=== PATIENT | male | born 1945 | race Hispanic/Latino ===

== ENCOUNTER 2016-08-27 16:09 | Emergency (ER) | payer MEDICARE ==
[2016-08-27] MEDS ORDERED: LIDOCAINE/EPI 2% 1:200,000 10 ML VIAL ONE (16:54)
--- NOTE | 2016-08-27 19:15 | ER NURSING DOCUMENTATION ---
Nurse's Notes [facility] Name:Jonathan Tay Age:70 yrs Sex:Male :1945 Arrival Date:08/27/2016 Time:16:09 BedD-1 Private MD: Diagnosis:Facial Laceration Presentation: 08/27 16:23 Presenting complaint: Patient states: tripped and fell while hiking. Hit forehead and lpr left side of nose. No LOC. No neck or back pain. Transition of care: patient was not received from another setting of care. Mechanism of Injury: resulted from a fall. 16:23 Method Of Arrival: Walk In lpr 16:23 Acuity: MAVIS 3 lpr Triage Assessment: 16:26 General: Appears in no apparent distress, Behavior is appropriate for age. Pain: lpr Complains of pain in forehead. EENT: Oral mucosa is moist. Neuro: Level of Consciousness is awake, alert, obeys commands, Oriented to person, place, time, event. Cardiovascular: No deficits noted. Respiratory: Airway is patent Respiratory effort is even, unlabored, Respiratory pattern is regular, symmetrical. GI: No deficits noted. : No deficits noted. Derm: Skin is pink, warm & dry. Musculoskeletal: Circulation, motion, and sensation intact Capillary refill < 3 seconds. Injury Description: Abrasion sustained to left cheek near nose Laceration sustained to forehead above left eyebrow. Historical: - Allergies: unknown bp med; - Home Meds: 1. pravastatin oral 2. Aspirin Oral 3. Atenolol Oral - PMHx: HIGH CHOLESTEROL; CAD; HYPERTENSION; - PSHx: CABG; kidney stones; - Tetanus: < 10 years. - Ebola Screening: : No symptoms or risks identified at this time. . - Immunization history: Flu Vaccine >1 year. - Social history: Smoking status: Patient states was never smoker of tobacco. Screenin:30 Infectious Disease Risk None. Abuse screen: Denies threats or abuse. Nutritional lpr screening: No deficits noted. Assessment: 16:29 See Triage Assessment done by same RN. Neuro: Level of Consciousness is awake, alert, lpr obeys commands, Oriented to person, place, time, event. Vital Signs: 16:28 BP 138 / 80; Pulse 76; Resp 16; Temp 97.6; Pulse Ox 89% on R/A; Weight 74.84 kg (R); lpr Height 5 ft. 7 in. (170.18 cm); Pain 3/10; 19:13 Pain 0/10; lc 16:28 Body Mass Index 25.84 (74.84 kg, 170.18 cm) lpr [place] Coma Score: 16:23 Eye Response: spontaneous(4). Verbal Response: oriented(5). Motor Response: obeys lpr commands(6). Total: 15. 17:00 Eye Response: spontaneous(4). Verbal Response: oriented(5). Motor Response: obeys tl1 commands(6). Total: 15. Trauma Score (Adult): 16:29 Eye Response: spontaneous(1); Verbal Response: oriented(1); Motor Response: obeys lpr commands(2); Systolic BP: > 89 mm Hg(4); Respiratory Rate: 10 to 29 per min(4); Kandy Score: 15; Trauma Score: 12 ED Course: 16:13 Patient arrived in ED. dp 16:21 Jose Dunbar MD is Attending Physician. tl1 16:25 Triage completed. lpr 16:29 Notified ED Physician of patient's arrival and chief complaint. Dr. Dunbar notified. lpr 16:30 Valuables Remains with patient Patient has correct armband on for positive lpr identification. 16:55 Wound care to laceration located on forehead was cleaned with soap and water, lpr Irrigation Normal Saline Patient tolerated well. 19:12 Wound care was cleaned with dressed with bacitracin. lc Administered Medications: 16:48 Drug: Lidocaine-Epinephrine -2 % (1:100,000) 10 ml; {Note: by Dr. Dunbar.} Route: lpr Infiltration; Outcome: 18:10 Discharge ordered by . tl1 19:13 Discharged to home ambulatory, with family. 19:13 Condition: stable 19:13 Discharge Assessment: Patient awake, alert and oriented x 3. No cognitive and/or functional deficits noted. Patient verbalized understanding of disposition instructions. 19:13 Discharge instructions given to patient, Instructed on discharge instructions, follow up and referral plans. wound care, Demonstrated understanding of instructions. 19:14 Patient left the ED. lc Signatures: Mai Bess RN RN lc Roberts, Leslie, RN RN lpr Leigh, Tom, MD MD tl1 Watkins, Erika dp
--- NOTE | 2016-08-27 19:15 | ER PHYSICIAN DOCUMENTATION ---
Physician Documentation [facility] Name:Jonathan Tay Age:70 yrs Sex:Male :1945 Arrival Date:08/27/2016 Time:16:09 BedD-1 Private MD: Jose Du Disposition: 08/29 07:07 Chart complete. tl1 Disposition: 08/27/16 18:10 Discharged to Home/Self Care. Impression: Facial Laceration. - Condition is Good. - Discharge Instructions: LACERATION, Face (suture or tape). - Medical Reconciliation form form. - Follow up: Private Physician; When: 4- 6 days; Reason: Staple/Suture removal. - Problem is new. - Symptoms have improved. HPI: 08/27 16:23 This 70 yrs old Male presents to ER with complaints of Head Injury-Adult - tl1 LEFT. 17:00 Context of injury: The problem was sustained outdoors, resulted from a fall, while tl1 walking. Onset: The symptom(s)/episode began/occurred suddenly, just prior to arrival. Associated signs and symptoms: Loss of consciousness: This patient did not experience any loss of consciousness. Pertinent negatives: headache, nausea, neck pain, vomiting, weakness in extremities. Severity of symptoms: At their worst the symptoms were very mild, in the emergency department the symptoms are unchanged. Intracranial bleed risk factors: age over 60. Historical: - Allergies: unknown bp med; - Home Meds: 1. pravastatin oral 2. Aspirin Oral 3. Atenolol Oral - PMHx: HIGH CHOLESTEROL; CAD; HYPERTENSION; - PSHx: CABG; kidney stones; - Tetanus: < 10 years. - Ebola Screening: : No symptoms or risks identified at this time. . - Immunization history: Flu Vaccine >1 year. - Social history: Smoking status: Patient states was never smoker of tobacco. ROS: 17:00 Eyes: Negative for injury or acute deformity, blurry vision, pain, photophobia, visual tl1 disturbance. 17:00 ENT: Negative for injury or acute deformity. 17:00 All other systems are negative. Exam: 17:00 Constitutional: This is a well developed, well nourished patient who is awake, alert, tl1 and in no acute distress. 17:00 Head/face: Exam is negative for raccoon eyes, Noted is a laceration(s), that is deep, that is jagged, 3 cm(s), of the middle aspect of left eyebrow. 17:00 Eyes: Exam is negative for acute changes, Pupils: equal, round, and reactive to light and accomodation. 17:00 ENT: External ear(s): are unremarkable, Nose: is normal. 17:00 Neck: External neck: is normal, C-spine: Nexus Criteria: Nexus criteria: no cervical midline tenderness, patient is not intoxicated, mental status is normal, no focal/neurologic deficits, and no painful distracting injuries are present, vertebral tenderness, is not appreciated, ROM/movement: is normal, is supple, without pain. 17:00 Chest/axilla: Palpation: tenderness, is not appreciated. 17:00 Cardiovascular: Rate: normal. 17:00 Respiratory: Respirations: normal. 17:00 Abdomen/GI: Palpation: abdomen is soft and non-tender. 17:00 Musculoskeletal/extremity: Exam is negative for acute changes. 17:00 Neuro: Orientation: is normal, Mentation: is normal, Memory: is normal, Cranial nerves: grossly normal, Motor: moves all fours, Gait: is steady, at a normal pace, without difficulty, appropriate for age. Vital Signs: 16:28 BP 138 / 80; Pulse 76; Resp 16; Temp 97.6; Pulse Ox 89% on R/A; Weight 74.84 kg (R); lpr Height 5 ft. 7 in. (170.18 cm); Pain 3/10; 19:13 Pain 0/10; lc 16:28 Body Mass Index 25.84 (74.84 kg, 170.18 cm) lpr [place] Coma Score: 16:23 Eye Response: spontaneous(4). Verbal Response: oriented(5). Motor Response: obeys lpr commands(6). Total: 15. 17:00 Eye Response: spontaneous(4). Verbal Response: oriented(5). Motor Response: obeys tl1 commands(6). Total: 15. Trauma Score (Adult): 16:29 Eye Response: spontaneous(1); Verbal Response: oriented(1); Motor Response: obeys lpr commands(2); Systolic BP: > 89 mm Hg(4); Respiratory Rate: 10 to 29 per min(4); Kandy Score: 15; Trauma Score: 12 Laceration: 17:00 Wound Repair of 3cm ( 1.2in ) subcutaneous laceration to middle aspect of left eyebrow. tl1 Irregularly shaped.. Hemostasis noted.. Distal neuro/vascular/tendon intact. Anesthesia: Wound infiltrated with 2.5 mls of 0.5% marcaine. Wound prep: Extensive cleansing by nurse, Wound explored, Copious irrigation. Skin closed with 5-0 Ethilon using Interrupted sutures. Skin closed with 5 1-0 Ethilon using sterile technique. Dressed with Bacitracin, Open to air. Patient tolerated well. MDM: 16:21 Patient medically screened. tl1 17:00 Data reviewed: vital signs, nurses notes, and as a result, I will discharge patient. tl1 Counseling: I had a detailed discussion with the patient and/or guardian regarding: the historical points, exam findings, and any diagnostic results supporting the discharge/admit diagnosis, the need for outpatient follow up, to return to the emergency department if symptoms worsen or persist or if there are any questions or concerns that arise at home. Response to treatment: the patient's symptoms have markedly improved after treatment, and as a result, I will discharge patient. Dispensed Medications: 16:48 Drug: Lidocaine-Epinephrine -2 % (1:100,000) 10 ml; {Note: by Dr. Dunbar.} Route: lpr Infiltration; Signatures: Mai Bess RN RN Lisette Barreto RN RN lpr Leigh, Tom, MD MD tl1
== END 2016-08-27 19:15 | disposition home or self-care (01) ==
LOC: ER 16:09
DX: S01.112A Laceration without foreign body of left eyelid and periocular area, initial encounter (principal); S00.81XA Abrasion of other part of head, initial encounter; W01.0XXA Fall on same level from slipping, tripping and stumbling without subsequent striking against object, initial encounter; Y92.838 Other recreation area as the place of occurrence of the external cause; Y93.01 Activity, walking, marching and hiking; I25.10 Atherosclerotic heart disease of native coronary artery without angina pectoris; Z79.899 Other long term (current) drug therapy; Z95.1 Presence of aortocoronary bypass graft; Z79.82 Long term (current) use of aspirin
CPT/HCPCS: 12052; 99283

== ENCOUNTER 2016-09-02 11:04 | Emergency (ER) | payer MEDICARE ==
--- NOTE | 2016-09-02 11:19 | ER PHYSICIAN DOCUMENTATION ---
Physician Documentation Name:Jonathan Tay Age:70 yrs Sex:Male :1945 Arrival Date:09/02/2016 Time:11:04 [facility] MD: Jose Du Disposition: 09/02 16:16 Chart complete. tl1 Disposition: 09/02/16 11:18 Discharged to Home/Self Care. Impression: Suture Removal. - Condition is Good. - Medical Reconciliation form form. - Follow up: Jose Dunbar MD; When: As needed; Reason: Worsening of condition. - Problem is new. - Symptoms are resolved. HPI: 11:13 This 70 yrs old Male presents to ER via Private Vehicle with complaints of tl1 suture removal. 16:16 I sutured his left supraorbital laceration last week. He came for suture removal, and tl1 was sent home by the nurse, Martha after the sutures were removed. I did not see him this visit. Historical: - Allergies: unknown bp med; - Home Meds: 1. pravastatin oral 2. Aspirin Oral 3. Atenolol Oral - PMHx: HIGH CHOLESTEROL; CAD; HYPERTENSION; Facial Laceration (August 27, 2016); - PSHx: CABG; kidney stones; - Tetanus: < 10 years. - Ebola Screening: : Patient negative for fever greater than or equal to 101.5 degrees Fahrenheit, and additional compatible Ebola Virus Disease symptoms. - Immunization history: Flu Vaccine unknown. - Social history: Smoking status: unknown if patient ever smoked tobacco. Vital Signs: 11:14 BP 136 / 80; Pulse 70; Resp 16; Temp 97.7(TE); Pulse Ox 91% on R/A; lp MDM: 11:13 Patient medically screened. tl1 Dispensed Medications: No medications were administered Signatures: Martha Pedroza RN RN lp Leigh, Tom, MD MD tl1 Debbie Campos
--- NOTE | 2016-09-02 11:19 | ER NURSING DOCUMENTATION ---
Nurse's Notes [facility] [place] Name:Jonathan Tay Age:70 yrs Sex:Male :1945 Arrival Date:09/02/2016 Time:11:04 BedTriage Private MD: Diagnosis:Suture Removal Presentation: 09/02 11:06 Presenting complaint: Patient states: suture removal. Transition of care: Home. rh 11:06 Acuity: MAVIS 5 rh 11:06 Method Of Arrival: Private Vehicle Triage Assessment: 11:07 General: Appears in no apparent distress, Behavior is cooperative. Pain: Denies pain. rh Historical: - Allergies: unknown bp med; - Home Meds: 1. pravastatin oral 2. Aspirin Oral 3. Atenolol Oral - PMHx: HIGH CHOLESTEROL; CAD; HYPERTENSION; Facial Laceration (August 27, 2016); - PSHx: CABG; kidney stones; - Tetanus: < 10 years. - Ebola Screening: : Patient negative for fever greater than or equal to 101.5 degrees Fahrenheit, and additional compatible Ebola Virus Disease symptoms. - Immunization history: Flu Vaccine unknown. - Social history: Smoking status: unknown if patient ever smoked tobacco. Screenin:17 Infectious Disease Risk None. Abuse screen: Denies threats or abuse. Denies injuries lp from another. Nutritional screening: No deficits noted. Assessment: 11:15 Derm: L above eye laceration well healed with scabbing noted. lp Vital Signs: 11:14 BP 136 / 80; Pulse 70; Resp 16; Temp 97.7(TE); Pulse Ox 91% on R/A; lp ED Course: 11:05 Patient arrived in ED. dp 11:06 Triage completed. rh 11:13 Jose Dunbar MD is Attending Physician. tl1 11:14 Martha Pedroza, BURTON is Primary Nurse. lp 11:[address] Dunbar notified. lp 11:17 Removed sutures from left eye Suture site is well healed Patient tolerated well. lp 11:18 Jose Dunbar MD is Referral Physician. lp 11:18 Valuables Remains with patient. lp Administered Medications: No medications were administered Outcome: 11:17 Discharged to home lp 11:17 Condition: good 11:17 Instructed on discharge instructions, follow up and referral plans. 11:17 No charge visit due to suture removal. 11:18 Discharge ordered by . millicent 11:19 Patient left the ED. lp Signatures: Martha Pedroza RN RN lp Leigh, Tom, MD MD tl1 Debbie Campos Denise dp
== END 2016-09-02 11:19 | disposition home or self-care (01) ==
LOC: ER 11:04
DX: Z48.02 Encounter for removal of sutures (principal); S01.112D Laceration without foreign body of left eyelid and periocular area, subsequent encounter